=== PATIENT | female | born 1960 | race Caucasian/White ===

== ENCOUNTER 2019-03-18 08:52 | Observation (INO) ==
[2019-03-18 09:34] LABS: Hemoglobin 10.7 gm/dL (12.5-16.0); Mean Cell Volume 84.6 fl (78-100); Mean Corpuscular Hemoglobin 27.4 pg (27-31); Mean Corpuscular Hgb Conc 32.4 g/dl (32-36); Neutrophil # 8.1 K/mm3 (1.3-6.0); Neutrophil % 75.7 % (42-75.0); Platelet Count 236 K/mm3 (150-450); Red Cell Distribution Width 13.3 % (11.5-14.0); White Blood Count 10.6 K/mm3 (4.0-10.5)
[2019-03-18 09:52] LABS: Urine Appearance Clear (CLEAR); Urine Bilirubin Negative (NEGATIVE); Urine Blood Negative /ul (NEGATIVE); Urine Color Yellow; Urine Ketone Negative (NEGATIVE); Urine Protein Negative (NEGATIVE); Urine Specific Gravity 1.005 SP.GR. (1.005-1.010); Urine Urobilinogen Normal (NORMAL)
[2019-03-18 09:53] LABS: Urine Bacteria None Seen; Urine Nitrite Negative (NEGATIVE); Urine RBC None Seen /hpf (0-5); Urine WBC 0-5 /hpf (0-5)
[2019-03-18 10:01] LABS: ALT 21 U/L (19-67); AST 17 U/L (0-48); Albumin * 3.2 gm/dl (3.4-5.0); Alkaline Phosphatase * 73 U/L (50-170); Anion Gap 11.6 mmol/L (6.8-13.8); BUN/Creatinine Ratio 11.4 (9.0-21.6); Bilirubin, Total 0.6 mg/dL (0.0-1.1); Blood Urea Nitrogen 12 mg/dL (3-23); Ca. Corrected For Albumin 8.8 mg/dL (8.4-10.2); Calcium * 8.5 mg/dL (7.9-10.9); Chloride 106 mmol/L (97-106); Glucose * 109 mg/dL (70-110); Lipase 96 U/L (73-393); Potassium 3.6 mmol/L (3.4-4.6); Sodium 136 mmol/L (132-142); Total Protein 7.1 gm/dL (6.2-8.2); Troponin I Less than 0.017 ng/mL (0.00-0.10)
--- NOTE | 2019-03-18 11:00 | ERNOTE ---
Back Pain ER HPI Date of Service: 03/18/19 Time Seen by Provider: 03/18/19 09:14 Source: patient Exam Limitations: no limitations Immunizations: IMMUNIZATION HX Immunizations Up to Date Yes History of Influenza Vaccine Yes Hx Pneumococcal Vaccination No Allergies/Adverse Reactions: Allergies eletriptan [From Relpax] Adverse Reaction (Severe, Verified 03/18/19 08:56) Tachycardia, Dizziness sumatriptan [From Imitrex] Adverse Reaction (Severe, Verified 03/18/19 08:56) Rash, GI upset Home Medications: HOME MEDICATIONS levothyroxine 150 mcg tablet 150 mcg PO DAILY #90 tab 06/20/18 [Last Taken Unknown] ranitidine HCl 300 mg tablet 300 mg PO HS #90 tab 09/24/18 [Last Taken Unknown] Narrative: Patient presents to the ED for right flank/side pain that has kevin constant since approx bed time on March 16. This is a "spasm" pain. Pain is worse with movement and palpation. No injury. Also worse with deep breathing. No fever. No abdominal pain. No other CP or SOB. No trauma. No calf pain or leg swelling. Has not seen anyone else for this. She just wanted to make sure there was nothing more going on so came in to be checked. Constant Sx. Timing: Reports: constant Quality/Severity: Reports: severe Location of pain: Reports: other - right flank/rib area Activities at Onset: Reports: none Recent Injury?: Reports: no Possible Precipitating Factor: Reports: none Modifying Factors - (Improves): Reports: nothing Modifying Factors - (Worsens): Reports: movement to right, movement to left, movement flexion, cough/deep breaths Associated Symptoms: Denies: fever/chills, constipation/incontinence, nausea/vomiting, problems urinating, difficulty walking, lightheadedness, numbess/weakness in legs Prior Treament: Reports: other - had something like this before with pneumonia. Denies: recently seen Review of Systems - Review of Systems Constitutional: Absent: fever EYE: Present: no symptoms reported ENT: Absent: sore throat Respiratory: Absent: shortness of breath Cardiology: Absent: chest pain Gastrointestinal/Abdominal: Absent: abdominal pain Genitourinary: Absent: dysuria Musculoskeletal: Present: See HPI Skin: Absent: rash Neurological: Absent: weakness All Other Systems: All systems neg except as marked Medical History (Last Reviewed 03/18/19 @ 11:24 by Cale Fuentes MD) Adhesive capsulitis of left shoulder (Resolved) Onset Date: ~2004 Hypothyroidism (Chronic) Closed fracture of pubic ramus (Resolved) . 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 Highest education level completed: Associate degree: academi Service: No Tobacco: Smoking Status: Former smoker Alcohol: alcohol intake: current Substance Use: substance use type: does not use Dietary Habits: caffeine: Yes Physical Exam - Physical Exam General Appearance: Present: alert, no apparent distress Head Exam: Present: normal inspection, no evidence of injury Eye Exam: Normal inspection: bilateral, PERRL: bilateral Ears, Nose, Throat: Present: normal ENT inspection Neck: Present: normal inspection Respiratory: Present: no respiratory distress, normal breath sounds, no accessory muscle use, lungs clear Cardiovascular/Chest: Present: regular rate, rhythm, normal peripheral pulses Gastrointestinal/Abdominal: Present: normal bowel sounds, nontender, nondistended, soft Back Exam: Present: other - there is tenderness right posterior rib area that seems to completely reproduce her pain. Clinically her pain is musculoskeletal. No CVA tendenress. NO anterior chest tenderness. Muscular tenderness. Extremity Exam: Present: normal inspection, non-tender, normal range of motion Neurological Exam: Present: alert, no motor/sensory deficits Skin Exam: Present: normal color, warm/dry, other - no shingles Progress - Results and Orders Patient's Lab Results:: I have reviewed the patient's lab results. - Vital Signs Patient's Vital Signs:: I have reviewed the patient's vital signs. Vital Signs: Vital Signs 03/18/19 08:57 Temperature 35.9 C L Pulse Rate 92 Respiratory Rate 15 Blood Pressure 124/77 O2 Sat by Pulse Oximetry 96 - EKG EKG #1 EKG: NSR EKG read: Interp. by me EKG Comments: NSR rate 85. Non-specific ST/T wave changes, no STEMI noted. - X-Ray X-Ray #1 X-Ray: chest Interpretation: Interp. by me X-ray Comments: I reviewed official radiology report - CT/Ultrasound CT/Ultrasound Narrative: I reviewed the official radiology report for CT chest. - Progress/Reassessment Chief Complaint: Back Pain Progress Note-Subjective: 03/18/19 12:20 IV Levaquin and SQ lovenox given. Given her pain and possible pulmonary infarct will admit. Patient agreeable. D/W Dr Becerra who will admit her. Departure Clinical Impression: Right-sided chest pain, Pulmonary embolism, Abnormal chest CT - Departure Disposition: Still a patient Condition: Stable Referrals: Jewel Becerra DO [Primary Care Provider] -
[2019-03-18] MEDS ORDERED: MORPHINE SULFATE 4 MG/ML SYRG IV ONE (11:51)
[2019-03-18] MEDS ORDERED: ENOXAPARIN SODIUM 80 MG/0.8 ML DISP.SYRIN SC ONE (12:13)
[2019-03-18] MEDS ORDERED: ENOXAPARIN SODIUM 100 MG/ML SYRG SC ONE (12:22)
[2019-03-18] MEDS ORDERED: LEVOFLOXACIN IN DEXTROSE 5 % 500 MG/100 ML BAG IV SCH (12:30)
[2019-03-18 13:04] LABS: Prothrombin Time (Patient) 10.3 Seconds (9.1-10.7)
[2019-03-18 13:05] LABS: INR 1.04 INR (0.92-1.08)
[2019-03-18] MEDS: oxyCODONE HCL/ACETAMINOPHEN 1 TAB TABLET PO PRN ×2 (16:20→22:26)
--- NOTE | 2019-03-18 18:49 | HP ---
Chief Complaint - Chief Complaint Date of Service: 03/18/19 Time of Service: 18:39 Chief Complaint: Back pain with inhalation History of Present Illness: Louise is a 58 yo female that reports two days of right bra line back pain that hurt worse with inhalation. She denies injury. Pain was getting worse with time so she presented to the [facility] ER for evaluation. She denies shortness of breath. She has had a very infrequent cough that is extremely painful. She denies hemoptysis. She was evaluated in the ER and found to have a pulmonary embolism with associated pulmonary infarct vs pneumonia. She reports no smoking for three years. 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 She denies any recent travel. She is not on control. She reports her mother had blood clots during her cancer treatment. No other family members with a history of blood clot. She does report having a stabbing calf pain a week or two ago, but it was only brief and does not continue to cause pain. She had no evidence of hypoxia in the ER. Medical History (Last Reviewed 03/18/19 @ 13:26 by Kaylee Green RN) Adhesive capsulitis of left shoulder (Resolved) Onset Date: ~2004 Hypothyroidism (Chronic) Closed fracture of pubic ramus (Resolved) . 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 Absent: Shortness of Breath, Wheezing Cardiac: Absent: Chest Pain, Edema, Palpitations, Syncope Abdominal: Absent: Nausea, Vomiting, Abdominal Pain Genitourinary: Present: No Symptoms Reported Musculoskeletal: Present: Back Pain - right bra line, worse with cough and inhalation Neurological: Present: No Symptoms Reported Skin: Present: No Symptoms Reported Immunizations: IMMUNIZATION HX Immunizations Up to Date Yes History of Influenza Vaccine Yes Hx Pneumococcal Vaccination No Allergies/Adverse Reactions: Allergies Allergy/AdvReac Type Severity Reaction Status Date / Time eletriptan [From Relpax] AdvReac Severe Tachycardia, Verified 03/18/19 08:56 Dizziness sumatriptan [From Imitrex] AdvReac Severe Rash, GI Verified 03/18/19 08:56 upset Home Medications: HOME MEDICATIONS levothyroxine 150 mcg tablet 150 mcg PO DAILY #90 tab 06/20/18 [Last Taken Unknown] ranitidine HCl 300 mg tablet 300 mg PO HS #90 tab 09/24/18 [Last Taken Unknown] Exam - Exam Vital Signs: Vital Signs - Last Taken Temp 36.9 C 03/18/19 13:09 Pulse 92 03/18/19 13:56 Resp 20 03/18/19 13:09 BP 110/60 03/18/19 13:09 Pulse Ox 98 03/18/19 13:09 Constitutional: Present: Alert, Oriented x3, Cooperative ENT Exam: Present: hearing grossly normal Eye Exam: bilateral eye: normal inspection Respiratory: Present: lungs clear, normal breath sounds Cardiovascular/Chest: Present: regular rate, rhythm, no murmur Peripheral Pulses: radial (R): 2+, radial (L): 2+ Abdomen: Present: Normal bowel sounds, soft, nontender, nondistended, no rebound tenderness, no hepatospenomegaly, no masses Skin Exam: Present: normal color, warm/dry, no cyanosis Lymphatic: Present: no adenopathy Neurologic: Present: no motor/sensory deficits, alert, normal mood/affect, oriented x 3 Appearance: Present: appropriate appearance, appropriate insight Eye contact: Present: cooperative, good eye contact, normal speech Thoughts: Present: normal thought pattern, no apparent hallucination Diagnostic Studies: Abnormal Lab Results 03/18/19 03/18/19 03/18/19 Range/Units 09:20 09:26 09:26 WBC 10.6 H (4.0-10.5) K/mm3 RBC 3.90 L (4.2-5.4) M/mm3 Hgb 10.7 L (12.5-16.0) gm/dL Hct 33.0 L (37.0-47.0) % Immature Gran # (Auto) 0.04 H (0.000-0.0310) K/mm3 Neutrophils % 75.7 H (42-75.0) % Lymphocytes % 13.0 L (20-51) % Monocytes % 9.8 H (0.0-9) % Neutrophils # 8.1 H (1.3-6.0) K/mm3 Lymphocytes # 1.38 L (1.5-3.5) k/mm3 ESR (0-15) mm/hr Fibrinogen (202-388) mg/dL D-Dimer 2.17 H (0.19-0.49) ug/mL Carbon Dioxide 22.0 L (24-32.6) mmol/L Est GFR (Non-Af Amer) 57 L (60-130) mL/min Albumin 3.2 L (3.4-5.0) gm/dl 03/18/19 03/18/19 Range/Units 12:35 12:35 WBC (4.0-10.5) K/mm3 RBC (4.2-5.4) M/mm3 Hgb (12.5-16.0) gm/dL Hct (37.0-47.0) % Immature Gran # (Auto) (0.000-0.0310) K/mm3 Neutrophils % (42-75.0) % Lymphocytes % (20-51) % Monocytes % (0.0-9) % Neutrophils # (1.3-6.0) K/mm3 Lymphocytes # (1.5-3.5) k/mm3 ESR 76 H (0-15) mm/hr Fibrinogen 684 H (202-388) mg/dL D-Dimer (0.19-0.49) ug/mL Carbon Dioxide (24-32.6) mmol/L Est GFR (Non-Af Amer) (60-130) mL/min Albumin (3.4-5.0) gm/dl Laboratory Results WBC 10.6 K/mm3 (4.0-10.5) H 03/18/19 09:20 RBC 3.90 M/mm3 (4.2-5.4) L 03/18/19 09:20 Hgb 10.7 gm/dL (12.5-16.0) L 03/18/19 09:20 Hct 33.0 % (37.0-47.0) L 03/18/19 09:20 MCV 84.6 fl (78-100) 03/18/19 09:20 MCH 27.4 pg (27-31) 03/18/19 09:20 MCHC 32.4 g/dl (32-36) 03/18/19 09:20 RDW 13.3 % (11.5-14.0) 03/18/19 09:20 Plt Count 236 K/mm3 (150-450) 03/18/19 09:20 MPV 10.0 fl (8-12.5) 03/18/19 09:20 Immature Gran % (Auto) 0.40 % (0.001-0.429) 03/18/19 09:20 Immature Gran # (Auto) 0.04 K/mm3 (0.000-0.0310) H 03/18/19 09:20 Neutrophils % 75.7 % (42-75.0) H 03/18/19 09:20 Lymphocytes % 13.0 % (20-51) L 03/18/19 09:20 Monocytes % 9.8 % (0.0-9) H 03/18/19 09:20 Eosinophils % 0.8 % (0.0-3.0) 03/18/19 09:20 Basophils % 0.3 % (0.0-1.0) 03/18/19 09:20 Nucleated RBC % 0.0 k/mm3 (0-1) 03/18/19 09:20 Neutrophils # 8.1 K/mm3 (1.3-6.0) H 03/18/19 09:20 Lymphocytes # 1.38 k/mm3 (1.5-3.5) L 03/18/19 09:20 Monocytes # 1.0 k/mm3 (0.0-1.0) 03/18/19 09:20 Eosinophils # 0.1 k/mm3 (0.0-0.7) 03/18/19 09:20 Absolute Basophils 0.0 k/mm3 (0.0-0.1) 03/18/19 09:20 ESR 76 mm/hr (0-15) H 03/18/19 12:35 PT 10.3 Seconds (9.1-10.7) 03/18/19 12:35 INR (Anticoag Therapy) 1.04 INR (0.92-1.08) 03/18/19 12:35 PTT ([place]) 31.0 Seconds (24-32) 03/18/19 12:35 Fibrinogen 684 mg/dL (202-388) H 03/18/19 12:35 D-Dimer 2.17 ug/mL (0.19-0.49) H 03/18/19 09:26 Sodium 136 mmol/L (132-142) 03/18/19 09:26 Plasma Sodium 136 mmol/L (130-142) 03/18/19 09:26 Potassium 3.6 mmol/L (3.4-4.6) 03/18/19 09:26 Chloride 106 mmol/L (97-106) 03/18/19 09:26 Carbon Dioxide 22.0 mmol/L (24-32.6) L 03/18/19 09:26 Anion Gap 11.6 mmol/L (6.8-13.8) 03/18/19 09:26 BUN 12 mg/dL (3-23) 03/18/19 09:26 Creatinine 1.05 mg/dL (0.4-1.4) 03/18/19 09:26 Est GFR (Non-Af Amer) 57 mL/min (60-130) L 03/18/19 09:26 BUN/Creatinine Ratio 11.4 (9.0-21.6) 03/18/19 09:26 Random Glucose 109 mg/dL (70-110) 03/18/19 09:26 Calcium 8.5 mg/dL (7.9-10.9) 03/18/19 09:26 Calcium Adj for Albumin 8.8 mg/dL (8.4-10.2) 03/18/19 09:26 Total Bilirubin 0.6 mg/dL (0.0-1.1) 03/18/19 09:26 AST 17 U/L (0-48) 03/18/19 09:26 ALT 21 U/L (19-67) 03/18/19 09:26 Alkaline Phosphatase 73 U/L (50-170) 03/18/19 09:26 Troponin I Less than 0.017 ng/mL (0.00-0.10) 03/18/19 09:26 Total Protein 7.1 gm/dL (6.2-8.2) 03/18/19 09:26 Albumin 3.2 gm/dl (3.4-5.0) L 03/18/19 09:26 Lipase 96 U/L (73-393) 03/18/19 09:26 Urine Color Yellow 03/18/19 09:41 Urine Appearance Clear (CLEAR) 03/18/19 09:41 Urine pH 6.0 pH (5.0-7.0) 03/18/19 09:41 Ur Specific [place] 1.005 SP.GR. (1.005-1.010) 03/18/19 09:41 Urine Protein Negative mg/dL (NEGATIVE) 03/18/19 09:41 Urine Glucose (UA) Negative mg/dL (NEGATIVE) 03/18/19 09:41 Urine Ketones Negative mg/dL (NEGATIVE) 03/18/19 09:41 Urine Blood Negative /ul (NEGATIVE) 03/18/19 09:41 Urine Nitrate Negative (NEGATIVE) 03/18/19 09:41 Urine Bilirubin Negative mg/dl (NEGATIVE) 03/18/19 09:41 Urine Urobilinogen Normal EU/dl (NORMAL) 03/18/19 09:41 Ur Leukocyte Esterase Negative /ul (NEGATIVE) 03/18/19 09:41 Urine RBC None seen /hpf (0-5) 03/18/19 09:41 Urine WBC 0-5 /hpf (0-5) 03/18/19 09:41 Ur Epithelial Cells 0-5 /hpf (0-5) 03/18/19 09:41 Urine Bacteria None seen (NONE) 03/18/19 09:41 Urine Culture Comments No culture indicated 03/18/19 09:41 Assessment/Plan - Narrative Narrative: Louise is a 58 yo female with acute pulmonary embolism. It is affect a single segmental artery and there is no hypoxia or respiratory distress. Genetic work up pending. 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 Treatment options were discussed and she elected for Eliquis, this will be started in the hospital. I will admit to observation for pain control. She had severe associated pain that was improved with IV morphine in the ER. I will start percocet prn. Her respiratory status will be monitored. 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 The genetic work up ordered will help to aid in this decision. - Assessment/Plan (1) Pulmonary embolism Problem: Acute Qualifiers: Pulmonary embolism type: single subsegmental (without acute cor pulmonale) Qualified Code(s): I26.93 - Single subsegmental pulmonary embolism without acute cor pulmonale (2) Pulmonary infarct Problem: Suspected (3) Pneumonia Problem: Suspected Qualifiers: Pneumonia type: due to unspecified organism Laterality: right Lung location: lower lobe of lung Qualified Code(s): J18.9 - Pneumonia, unspecified organism
[2019-03-18] MEDS: APIXABAN 5 MG TABLET PO SCH (20:48)
[2019-03-18] MEDS ORDERED: FAMOTIDINE 20 MG TABLET PO SCH (21:00)
[2019-03-19] MEDS: oxyCODONE HCL/ACETAMINOPHEN 1 TAB TABLET PO PRN (06:36)
[2019-03-19] MEDS ORDERED: LEVOTHYROXINE SODIUM 150 MCG TABLET PO SCH (07:00)
[2019-03-19] MEDS: APIXABAN 5 MG TABLET PO SCH (08:28)
--- NOTE | 2019-03-19 10:49 | DS ---
(1) Pulmonary embolism Problem: Acute Qualifiers: Pulmonary embolism type: single subsegmental (without acute cor pulmonale) Qualified Code(s): I26.93 - Single subsegmental pulmonary embolism without acute cor pulmonale (2) Pulmonary infarct Problem: Suspected (3) Pneumonia Problem: Suspected Qualifiers: Pneumonia type: due to unspecified organism Laterality: right Lung location: lower lobe of lung Qualified Code(s): J18.9 - Pneumonia, unspecified organism Date of Discharge:: 03/19/19 Description of Stay: Luoise was admitted with pulmonary embolism with infarct vs pneumonia. She was given lovenox in the ER and levaquin and admitted to observation to monitor for respiratory compromise and pain control. She did well over night without hypoxia and pain was controlled with percocet. Chest xray showed pneumonia vs pulmonary infarct secondary to PE. I will continue treatment for potential pneumonia with levaquin 750mg PO daily x 7 days and Eliquis for PE for 6 months. She will follow up with me in 1 week. She will be off of work from yesterday though this week to recover and may go back to work next sunday without restrictions. Procedures Performed: none Results and Findings: Lab Pending Results 03/18/19 09:20: WBC 10.6 H, RBC 3.90 L, Hgb 10.7 L, Hct 33.0 L, MCV 84.6, MCH 27.4, MCHC 32.4, RDW 13.3, Plt Count 236, MPV 10.0, Immature Gran % (Auto) 0.40, Immature Gran # (Auto) 0.04 H, Neutrophils % 75.7 H, Lymphocytes % 13.0 L, Monocytes % 9.8 H, Eosinophils % 0.8, Basophils % 0.3, Nucleated RBC % 0.0, Neutrophils # 8.1 H, Lymphocytes # 1.38 L, Monocytes # 1.0, Eosinophils # 0.1, Absolute Basophils 0.0 03/18/19 09:26: Sodium 136, Plasma Sodium 136, Potassium 3.6, Chloride 106, Carbon Dioxide 22.0 L, Anion Gap 11.6, BUN 12, Creatinine 1.05, Est GFR (Non-Af Amer) 57 L, BUN/Creatinine Ratio 11.4, Random Glucose 109, Calcium 8.5, Calcium Adj for Albumin 8.8, Total Bilirubin 0.6, AST 17, ALT 21, Alkaline Phosphatase 73, Troponin I Less than 0.017, Total Protein 7.1, Albumin 3.2 L, Lipase 96 03/18/19 09:26: D-Dimer 2.17 H 03/18/19 09:41: Urine Color Yellow, Urine Appearance Clear, Urine pH 6.0, Ur Specific [place] 1.005, Urine Protein Negative, Urine Glucose (UA) Negative, Urine Ketones Negative, Urine Blood Negative, Urine Nitrate Negative, Urine Bilirubin Negative, Urine Urobilinogen Normal, Ur Leukocyte Esterase Negative, Urine RBC None seen, Urine WBC 0-5, Ur Epithelial Cells 0-5, Urine Bacteria None seen, Urine Culture Comments No culture indicated 03/18/19 12:35: ESR 76 H 03/18/19 12:35: PT 10.3, INR (Anticoag Therapy) 1.04, PTT ([place]) 31.0 03/18/19 12:35: Fibrinogen 684 H Discharge Location: Home Disposition: Home self-care Condition: Good Discharge Activity: Activity as tolerated Discharge Diet: General/regular food Referrals: Jewel Becerra DO [Primary Care Provider] - One Week Problem Oriented Discharge Instructions to Patient/Family: Pulmonary Embolism Additional Patient Instructions (free text): Take Eliquis 2 tabs twice a day for a week, then decrease to 1 tab twice a day and continue for 6 months. Off work from Sunday through the rest of this week. Ok to return to work sunday without restrictions. Prescriptions (Any new or edited meds): Apixaban [Eliquis] 10 mg PO BID #60 tab Transmission Status: Pending to [facility] #[id number] Levofloxacin [Levaquin] 750 mg PO DAILY #7 tab Transmission Status: Pending to [facility] #[id number] oxyCODONE HCL/ACETAMINOPHEN [Oxycodone-Acetaminophen 5-325] 1 each PO Q6H #60 tablet Transmission Status: Sent to [facility] #[id number] Complete Home Medications List: Complete Home Medication List: levothyroxine 150 mcg tablet 150 mcg PO DAILY #90 tab 06/20/18 ranitidine HCl 300 mg tablet 300 mg PO HS #90 tab 09/24/18 Apixaban [Eliquis] 10 mg PO BID #60 tab 03/19/19 Levofloxacin [Levaquin] 750 mg PO DAILY #7 tab 03/19/19 oxyCODONE HCL/ACETAMINOPHEN [Oxycodone-Acetaminophen 5-325] 1 each PO Q6H #60 tablet 03/19/19 oxyCODONE HCL/ACETAMINOPHEN [Percocet 5 MG/325 MG] 1 tab PO Q6H PRN tablet 03/19/19
[2019-03-19 11:16] VITALS: BP 127/61
[2019-03-21 09:39] LABS: Cardiolipin Antibody IgA <11 APL; Cardiolipin Antibody IgG <14 GPL; Cardiolipin Antibody IgM <12 MPL
[2019-03-22 07:40] LABS: Protein C Activity 110 % normal (70-180); Protein C Antigen 104 % normal (70-140)
== END 2019-03-19 11:29 | disposition home or self-care (01) ==
LOC: ER 08:52 → MS 08:52
PROVIDERS: ADMIT Family Medicine; ATTEND Family Medicine
DX: I26.93 Single subsegmental thrombotic pulmonary embolism without acute cor pulmonale; J18.9 Pneumonia, unspecified organism; E03.9 Hypothyroidism, unspecified
CPT/HCPCS: 36415; 71020; 71046; 71275; 80053; 81001; 81240; 81241; 83090; 83690; 84484; 85025; 85300; 85302; 85303; 85305; 85306; 85379; 85384; 85420; 85610; 85613; 85652; 85730; 86147; 87040; 93005; 96365; 96372; 96375; 99285; G0378; Q9967